=== PATIENT | female | born 2000 | race African-American/Black ===

== ENCOUNTER 2024-02-04 11:18 | Outpatient (CLI) | payer OTHER, SELFPAY ==
[2024-02-04 12:33] LABS: Free T4 Free Thyroxine 1.03 ng/mL (0.78-2.19)
[2024-02-04 13:22] LABS: Hemoglobin A1C 5.7 % (<5.7)
[2024-02-05 14:54] LABS: Insulin Level Total 16.8 uIU/mL
[2024-02-06 02:04] LABS: DHEA-Sulfate 247 mcg/dL (14-349); FSH 5.9 mIU/mL; LH 5.8 mIU/mL
== END 2024-02-04 11:19 | disposition home or self-care (01) ==
LOC: ANHLAB 11:20
PROVIDERS: PCP Physician Assistant; Visit Provider Nurse Practitioner Family
DX: N92.6 Irregular menstruation, unspecified (principal)
CPT/HCPCS: 36415; 82627; 83001; 83002; 83036; 83498; 83525; 84146; 84403; 84439; 84443